=== PATIENT | male | born 1990 | race Caucasian/White ===

== ENCOUNTER 2017-03-02 14:01 | Emergency (ER) | payer SELFPAY ==
[~2017-03-02] VITALS: Ht 193 cm; Wt 115.0 kg
[2017-03-02 14:20] VITALS: BP 125/66; PULSE 87; RESP 17; TEMP 98.6; O2SAT 93
--- NOTE | 2017-03-02 14:32 | PD ---
HPI Chief Complaint: OD/ Ingestion Time Seen by Provider: 14:15 Travel History International Travel<30 days: No Contact w/Intl Traveler<30days: No Traveled to known affect area: No History of Present Illness HPI Is a 26-year-old male presents on Martinez act. Patient states that because he couldn't get any marijuana he took 3 Percocet today and attempt to get high. According to EMS he told his father that he was thinking about committing suicide and may have taken as many as 7 Percocet pills. Patient has no complaints currently. He states if he had taken 7 pills to be on the floor gurgling. He denies any chest pain shortness of breath abdominal pain nausea vomiting. He denies any suicidal or homicidal ideation. Patient's mother arrives and informs me that the patient's father whom she is now from said he heard a loud thump and went to investigate and found the patient on the floor after he "face planted". Mom is concerned because patient's brother has had suicidal ideation the past and patient is made comments regarding suicidal ideation when he is angry in the past. She thinks that he is depressed and has undiagnosed psychiatric disorder. When I informed her that he is Martinez acted she stated that this was appropriate. His unclear how much of the Percocet he took which she is unaware of any prescription that he has for it. [facility] Past Medical History Medical History: Denies Significant Hx Past Surgical History Surgical History: No Previous Surgery Social History Alcohol Use: Yes Tobacco Use: Yes Substance Use: Yes Allergies-Medications (Allergen,Severity, Reaction): Coded Allergies: No Known Allergies (Unverified , 03/02/17) Reported Meds & Prescriptions Reported Meds & Active Scripts Active No Active Prescriptions or Reported Medications Review of Systems Except as stated in HPI: all other systems reviewed are Neg Physical Exam Narrative GENERAL: Well-developed, overweight no apparent distress. Somewhat somnolent. SKIN: Patient with tattoos of bilateral nipples 1 with a smiley face and with a sad face. No bruising no lacerations seen on his person. HEAD: Atraumatic. Normocephalic. EYES: Pupils equal and round approximately 5 mm in size.. No scleral icterus. No injection or drainage. ENT: No nasal bleeding or discharge. Mucous membranes pink and moist. NECK: Trachea midline. No JVD. CARDIOVASCULAR: Regular rate and rhythm. No murmur appreciated. RESPIRATORY: No accessory muscle use. Clear to auscultation. Breath sounds equal bilaterally. GASTROINTESTINAL: Abdomen soft, non-tender, nondistended. Hepatic and splenic margins not palpable. MUSCULOSKELETAL: No obvious deformities. No clubbing. No cyanosis. No edema. NEUROLOGICAL: Awake and alert. No obvious cranial nerve deficits. Motor grossly within normal limits. Normal speech. PSYCHIATRIC: Appropriate mood and affect; insight and judgment normal. Data Data Last Documented VS Vital Signs Date Time Temp Pulse Resp B/P Pulse Ox O2 Delivery O2 Flow Rate FiO2 03/02/17 21:24 98.2 76 20 155/76 99 Room Air Orders Complete Blood Count With Diff (03/02/17 14:15) Comprehensive Metabolic Panel (03/02/17 14:15) Iv Access Insert/Monitor (03/02/17 14:15) Psych Screen (03/02/17 14:15) Alcohol (Ethanol) (03/02/17 14:15) Salicylates (Aspirin) (03/02/17 14:15) Tylenol (Acetaminophen) (03/02/17 14:15) Ct Brain W/O Iv Contrast(Rout) (03/02/17 ) Ct Cerv Spine W/O Contrast (03/02/17 ) Tylenol (Acetaminophen) (03/02/17 16:41) Electrocardiogram (03/02/17 14:26) Labs Laboratory Tests Test 03/02/17 03/02/17 14:40 17:00 Sodium Level 140 MEQ/L Potassium Level 4.0 MEQ/L Chloride Level 107 MEQ/L Carbon Dioxide Level 25.2 MEQ/L Anion Gap 8 MEQ/L Blood Urea Nitrogen 10 MG/DL Creatinine 0.86 MG/DL Estimat Glomerular Filtration 108 ML/MIN Rate Random Glucose 78 MG/DL Calcium Level 8.7 MG/DL Total Bilirubin 0.3 MG/DL Aspartate Amino Transf 15 U/L (AST/SGOT) Alanine Aminotransferase 36 U/L (ALT/SGPT) Alkaline Phosphatase 50 U/L Total Protein 6.3 GM/DL Albumin 3.4 GM/DL Salicylates Level LESS THAN 1.7 MG/DL Acetaminophen Level LESS THAN 2.0 LESS THAN 2.0 MCG/ML MCG/ML Ethyl Alcohol Level LESS THAN 3 MG/DL White Blood Count 9.0 TH/MM3 Red Blood Count 4.73 MIL/MM3 Hemoglobin 14.4 GM/DL Hematocrit 41.5 % Mean Corpuscular Volume 87.7 FL Mean Corpuscular Hemoglobin 30.3 PG Mean Corpuscular Hemoglobin 34.6 % Concent Red Cell Distribution Width 13.5 % Platelet Count 279 TH/MM3 Mean Platelet Volume 8.6 FL Neutrophils (%) (Auto) 57.8 % Lymphocytes (%) (Auto) 25.7 % Monocytes (%) (Auto) 8.4 % Eosinophils (%) (Auto) 7.7 % Basophils (%) (Auto) 0.4 % Neutrophils # (Auto) 5.2 TH/MM3 Lymphocytes # (Auto) 2.3 TH/MM3 Monocytes # (Auto) 0.8 TH/MM3 Eosinophils # (Auto) 0.7 TH/MM3 Basophils # (Auto) 0.0 TH/MM3 CBC Comment DIFF FINAL Differential Comment MDM Medical Decision Making Medical Screen Exam Complete: Yes Emergency Medical Condition: Yes Interpretation(s) EKG shows normal sinus rhythm normal axis normal R-wave progression. No concerning interval changes. No concerning ST segment changes. This is a normal EKG. Differential Diagnosis Depression, intoxication, Tylenol overdose. Narrative Course 26-year-old male presents emergency department after ingestion of some amount of opiate/Tylenol medication. Intention truly unknown but was placed under Martinez act by police officers, mildly somnolent but protecting airway. Initial Tylenol negative, CT head negative. Patient to have 4 hour tylenol level drawn at 1700 if negative will be medically cleared for psychiatric evaluation. Scripts No Active Prescriptions or Reported Meds Bryan Cho MD Mar 02, 2017 14:32
[2017-03-02 15:30] LABS: AUTOMATED NEUTROPHIL # 5.2 TH/MM3 (1.8-7.7); BASOPHIL % 0.4 % (0.0-2.0); EOSINOPHIL # 0.7 TH/MM3 (0-0.4); EOSINOPHIL % 7.7 % (0.0-4.0); HEMATOCRIT 41.5 % (39.0-51.0); HEMO FLAGS DIFF FINAL; LYMPH % 25.7 % (9.0-44.0); LYMPHOCYTE # 2.3 TH/MM3 (1.0-4.8); MEAN CELL VOLUME 87.7 FL (80.0-100.0); MEAN CORPUSCULAR HEMOGLOBIN 30.3 PG (27.0-34.0); MEAN CORPUSCULAR HGB CONC 34.6 % (32.0-36.0); MONO % 8.4 % (0.0-8.0); NEUT % 57.8 % (16.0-70.0); PLATELET COUNT 279 TH/MM3 (150-450); RED BLOOD COUNT 4.73 MIL/MM3 (4.50-5.90); RED CELL DISTRIBUTION WIDTH 13.5 % (11.6-17.2)
[2017-03-02 16:03] LABS: ANION GAP 8 MEQ/L (5-15); AST (GOT) 15 U/L (15-37); BICARBONATE 25.2 MEQ/L (21.0-32.0); BLOOD UREA NITROGEN 10 MG/DL (7-18); CHLORIDE 107 MEQ/L (98-107); GLOMERULAR FILTRATION RATE 108 ML/MIN (>89); SODIUM (NA) 140 MEQ/L (136-145)
[2017-03-02 16:06] LABS: ACETAMINOPHEN LESS THAN 2.0 MCG/ML (10.0-30.0); ALKALINE PHOSPHATASE 50 U/L (45-117); ALT (GPT) 36 U/L (12-78); TOTAL BILIRUBIN ADULT 0.3 MG/DL (0.2-1.0)
--- NOTE | 2017-03-02 16:53 | RADRPT ---
EXAM DATE/TIME: 03/02/2017 16:06 [facility] COMPARISON: No previous studies available for comparison. INDICATIONS : Passed out hit face on floor RADIATION DOSE: 38.71 CTDIvol (mGy) MEDICAL HISTORY : None SURGICAL HISTORY : None. ENCOUNTER: Initial ACUITY: 1 day PAIN SCALE: 0/10 LOCATION: cranial TECHNIQUE: Multiple contiguous axial images were obtained of the head. Using automated exposure control and adj ustment of the mA and/or kV according to patient size, radiation dose was kept as low as reasonably a chievable to obtain optimal diagnostic quality images. DICOM format image data is available electro nically for review and comparison. FINDINGS: There is no evidence for intracranial hemorrhage, mass effect, mass lesions, edema, or extra-axial fl uid collections. The visualized bony structures appear intact. The ventricles are normal size for t he patient's age. There are no signs of acute infarction for technique. CONCLUSION: Unremarkable study. Tayler Humphrey MD on March 02, 2017 at 16:50 Board Certified Radiologist. This report was verified electronically.
--- NOTE | 2017-03-02 17:07 | RADRPT ---
EXAM DATE/TIME: 03/02/2017 16:06 [facility] COMPARISON: No previous studies available for comparison. INDICATIONS : Passed out hit face on floor. RADIATION DOSE: 27.37 CTDIvol (mGy) MEDICAL HISTORY : None SURGICAL HISTORY : None. ENCOUNTER: Initial ACUITY: 1 day PAIN SCALE: 0/10 LOCATION: neck TECHNIQUE: Volumetric scanning of the cervical spine was performed. Multiplanar reconstructions in the sagittal, coronal and oblique axial planes were performed. Using automated exposure control and adjustment o f the mA and/or kV according to patient size, radiation dose was kept as low as reasonably achievable to obtain optimal diagnostic quality images. DICOM format image data is available electronically f or review and comparison. FINDINGS: Vertebral body heights are intact. Dens is intact. No acute bony fracture or focal bony destruction. Sagittal alignment is maintained. There is a normal C1-2 relationship. Facets are normally aligned. N o significant prevertebral soft tissue hematoma or mass. Central bony canal is patent. Visualized lópez g apices are clear. CONCLUSION: 1. No acute fracture or subluxation. Zach Borjas MD on March 02, 2017 at 17:03 Board Certified Radiologist. This report was verified electronically.
[2017-03-02 21:24] VITALS: BP 155/76; PULSE 76; RESP 20; TEMP 98.2; O2SAT 99
--- NOTE | 2017-03-03 12:17 | EKG ---
Date Performed: 03/02/2017 Time Performed: 14:26:21 PTAGE: 26 years EKG: Sinus rhythm NORMAL ECG NO PREVIOUS TRACING DOCTOR: Hilton Gill Interpretating Date/Time 03/03/2017 12:16:11
== END 2017-03-03 01:58 ==
LOC: NEPD 14:01 → NEPJ 03-03 01:58
DX: T39.1X4A Poisoning by 4-Aminophenol derivatives, undetermined, initial encounter (principal); Z72.0 Tobacco use
CPT/HCPCS: 70450; 72125; 80053; 80307; 85025; 93005; 99285

== ENCOUNTER 2017-03-07 17:18 | Emergency (ER) | payer SELFPAY ==
[2017-03-07 17:20] VITALS: BP 130/77; PULSE 97; RESP 15; TEMP 98.2; O2SAT 99
--- NOTE | 2017-03-07 17:44 | PD ---
HPI Chief Complaint: Injury Time Seen by Provider: 17:40 Travel History International Travel<30 days: No Contact w/Intl Traveler<30days: No Traveled to known affect area: No History of Present Illness HPI PATIENT STATES THAT HE PUNCHED A WALL YESTERDAY AND HAS BEEN HAVING RIGHT WRIST PAIN EVER SINCE, SKIN INTACT. PAIN WORSE WITH MOVEMENT, 03/12 PFSH Social History Alcohol Use: Yes Tobacco Use: Yes Substance Use: Yes Allergies-Medications (Allergen,Severity, Reaction): Coded Allergies: No Known Allergies (Unverified , 03/02/17) Reported Meds & Prescriptions Reported Meds & Active Scripts Active No Active Prescriptions or Reported Medications Review of Systems Except as stated in HPI: all other systems reviewed are Neg Musculoskeletal: Positive: Pain Physical Exam Narrative GENERAL: SKIN: Warm and dry. HEAD: Atraumatic. Normocephalic. EYES: Pupils equal and round. No scleral icterus. No injection or drainage. ENT: No nasal bleeding or discharge. Mucous membranes pink and moist. NECK: Trachea midline. No JVD. CARDIOVASCULAR: Regular rate and rhythm. RESPIRATORY: No accessory muscle use. Clear to auscultation. Breath sounds equal bilaterally. GASTROINTESTINAL: Abdomen soft, non-tender, nondistended. Hepatic and splenic margins not palpable. MUSCULOSKELETAL: Extremities without clubbing, cyanosis, or edema. No obvious deformities. HOWEVER RIGHT DISTAL RADIUS REGION HAS MILD EDEMA AND TTP NEUROLOGICAL: Awake and alert. No obvious cranial nerve deficits. Motor grossly within normal limits. Five out of 5 muscle strength in the arms and legs. Normal speech. PSYCHIATRIC: Appropriate mood and affect; insight and judgment normal. Data Data Last Documented VS Vital Signs Date Time Temp Pulse Resp B/P Pulse Ox O2 Delivery O2 Flow Rate FiO2 03/07/17 17:20 98.2 97 15 130/77 99 Orders Wrist, Complete ([id number]) (03/07/17 ) Splint Or Brace Apply/Monitor (03/07/17 18:59) MDM Medical Decision Making Medical Screen Exam Complete: Yes Emergency Medical Condition: Yes Medical Record Reviewed: Yes Differential Diagnosis SPRAIN V FX V DISLOCATION Narrative Course XRAY DID NOT SHOW ANY E/O FX DISLOCATION OR SUBLUXATION WILL SPLINT AND D/C HOME Diagnosis Primary Impression: RIGHT WRIST SPRAIN Patient Instructions: General Instructions, Wrist Sprain (ED) Scripts Tramadol (Ultram)50 Mg Tab50 Mg PO Q4H PRN (PAIN) #20 TAB Prov:Misha Wells MD 03/07/17 Disposition: 01 DISCHARGE HOME Condition: Stable Misha Wells MD Mar 07, 2017 17:44
--- NOTE | 2017-03-07 18:57 | RADRPT ---
EXAM DATE/TIME: 03/07/2017 18:37 [facility] COMPARISON: No previous studies available for comparison. INDICATIONS : Patient punched an object and is having right wrist pain. MEDICAL HISTORY : None. SURGICAL HISTORY : None. ENCOUNTER: Initial ACUITY: 2 days PAIN SCORE: 8/10 LOCATION: Right Wrist FINDINGS: Three view examination of the right wrist demonstrates no soft tissue swelling, dislocation, or fract ure. The carpal bones are in normal alignment. The joint spaces are maintained. Bony mineralizatio n is normal. CONCLUSION: Normal examination for a patient of this age. Pawan Hong MD on March 07, 2017 at 18:55 Board Certified Radiologist. This report was verified electronically.
[2017-03-07] MEDS ORDERED: ULTR50TA5 PO (19:02)
== END 2017-03-07 19:38 | disposition home or self-care (01) ==
LOC: NEPD 17:18
DX: S63.501A Unspecified sprain of right wrist, initial encounter (principal); Z72.0 Tobacco use; W22.01XA Walked into wall, initial encounter
CPT/HCPCS: 73110; 99283; L3908